=== PATIENT | female | born 1995 | race Caucasian/White ===

== ENCOUNTER 2019-09-29 23:30 | Emergency (ER) | payer SELFPAY ==
[~2019-09-29] VITALS: Ht 165.1 cm; Wt 118.0 kg
[~2019-09-29 23:30] MED LIST: IBUP-1027 PO
[2019-09-29 23:40] VITALS: BP 150/97
[2019-09-29] MEDS ORDERED: CEPH-264 PO (23:54)
--- NOTE | 2019-09-29 23:55 | PHYS DOC ---
Past Medical History Past Medical History: No Pertinent History Past Surgical History: No Surgical History Smoking Status: Current Some Day Smoker Alcohol Use: None Drug Use: None General Adult EDM: Chief Complaint: ABSCESS HPI: HPI: Patient is a 24 year old female presents for evaluation of swelling to her right cheek. Patient states she noticed swelling today. Swelling is located right cheek just inferior to the right eye. Associated symptoms include swelling and itch. On exam there is some mild swelling and erythema. There is a central open wound. Review of Systems: Review of Systems: Constitutional: Denies fever or chills. [] Eyes: Denies change in visual acuity. [] HENT: Denies nasal congestion or sore throat. [] Respiratory: Denies cough or shortness of breath. [] Cardiovascular: Denies chest pain or edema. [] GI: Denies abdominal pain, nausea, vomiting, bloody stools or diarrhea. [] : Denies dysuria. [] Musculoskeletal: Denies back pain or joint pain. [] Integument: Denies rash. [positive swelling positive cellulitis] Neurologic: Denies headache, focal weakness or sensory changes. [] Endocrine: Denies polyuria or polydipsia. [] Lymphatic: Denies swollen glands. [] Psychiatric: Denies depression or anxiety. [] Heart Score: Risk Factors: Risk Factors: DM, Current or recent (<one month) smoker, HTN, HLP, family history of CAD, obesity. Risk Scores: Score 0 - 3: 2.5% MACE over next 6 weeks - Discharge Home Score 4 - 6: 20.3% MACE over next 6 weeks - Admit for Clinical Observation Score 7 - 10: 72.7% MACE over next 6 weeks - Early Invasive Strategies Allergies: Allergies: Allergies Coded Allergies Type Severity Reaction Last Updated Verified No Known Drug Allergies 09/11/14 No Physical Exam: PE: Constitutional: Well developed, well nourished, no acute distress, non-toxic appearance. [] HENT: Normocephalic, atraumatic, bilateral external ears normal, oropharynx moist, no oral exudates, nose normal. [] Eyes: PERRLA, EOMI, conjunctiva normal, no discharge. [] Neck: Normal range of motion, no tenderness, supple, no stridor. [] Cardiovascular:Heart rate regular rhythm, no murmur [] Lungs & Thorax: Bilateral breath sounds clear to auscultation [] Abdomen: Bowel sounds normal, soft, no tenderness, no masses, no pulsatile masses. [] Skin: Warm, dry, no erythema, no rash. [swelling right cheek, small wound central, no scab no active bleeding, warm to touch, nonfluctant] Back: No tenderness, no CVA tenderness. [] Extremities: No tenderness, no cyanosis, no clubbing, ROM intact, no edema. [] Neurologic: Alert and oriented X 3, normal motor function, normal sensory function, no focal deficits noted. [] Psychologic: Affect normal, judgement normal, mood normal. [] Current Patient Data: Vital Signs: Vital Signs Date Time Temp Pulse Resp B/P (MAP) Pulse Ox O2 Delivery O2 Flow Rate FiO2 09/29/19 23:40 98.3 90 20 150/97 (114) 96 Room Air 98.3 EKG: EKG: [] Radiology/Procedures: Radiology/Procedures: [] Course & Med Decision Making: Course & Med Decision Making Pertinent Labs and Imaging studies reviewed. (See chart for details) [] Dragon Disclaimer: Dragon Disclaimer: This electronic medical record was generated, in whole or in part, using a voice recognition dictation system. Departure Departure Impression: Primary Impression: Cellulitis Disposition: 01 HOME, SELF-CARE Condition: STABLE Referrals: NO PCP (PCP) Patient Instructions: Cellulitis Scripts Cephalexin (KEFLEX) 500 Mg Capsule 500 MG PO QID, #40 CAP Prov: DELL MARTINI DO 09/29/19 Justicifation of Admission Dx: Justifications for Admission: Justification of Admission Dx: N/A DELL MARTINI DO Sep 29, 2019 23:55
== END 2019-09-30 00:01 | disposition home or self-care (01) ==
LOC: ER 23:30
DX: L03.211 Cellulitis of face (principal); L53.9 Erythematous condition, unspecified; R60.0 Localized edema; F17.200 Nicotine dependence, unspecified, uncomplicated
CPT/HCPCS: 99283

== ENCOUNTER 2020-01-29 11:01 | Emergency (ER) | payer MEDICAID, OTHER ==
[~2020-01-29] VITALS: Ht 170.2 cm; Wt 122.7 kg
[~2020-01-29 11:01] MED LIST changes: +CEPH-264 PO
[2020-01-29 11:31] LABS: BILIRUBIN,URINE NEGATIVE (NEG); CLARITY,URINE CLEAR; COLOR,URINE YELLOW; NITRITE,URINE NEGATIVE (NEG); PROTEIN,URINE NEGATIVE (NEG-TRACE)
[2020-01-29 11:35] LABS: BACTERIA,URINE MODERATE /HPF (0-FEW); RBC,URINE OCC /HPF (0-2)
--- NOTE | 2020-01-29 11:37 | ED.ADGEN ---
Past Medical History Past Medical History: No Pertinent History Past Surgical History: No Surgical History Smoking Status: Current Some Day Smoker Alcohol Use: None Drug Use: None General Adult EDM: Chief Complaint: VAGINAL PROBLEM HPI: HPI: Patient is a 24 year old female who presents the emergency department with complaints of pelvic pain after a slip and fall yesterday. Patient states that she slipped on a wet floor in her dining room and landed on her right side, she denies any loss of consciousness. Patient reports concern because she is currently , her last menstrual cycle was on November [id number] and her estimated due date is August 102020. Patient is 1, para 0. She denies any vaginal bleeding or irregular vaginal discharge. The patient denies any back pain, extremity pain, fever, cough, shortness of breath, hematuria, abdominal pain, nausea, vomiting, or diarrhea. She states she has had some burning with urination since yesterday. She currently rates pain a 5 out of 10 on the pain scale, she denies any alleviating factors the pain is worse with urination. Review of Systems: Review of Systems: Complete ROS is negative unless otherwise noted in HPI. Allergies: Allergies: Allergies Coded Allergies Type Severity Reaction Last Updated Verified No Known Drug Allergies 09/11/14 No Physical Exam: PE: See Above Constitutional: Well developed, well nourished, no acute distress, non-toxic appearance, obese. HENT: Normocephalic, atraumatic, bilateral external ears normal, nose normal. Eyes: PERRLA, EOMI, conjunctiva normal, no discharge. Neck: Normal range of motion, no stridor. Cardiovascular: Heart rate regular rhythm Lungs & Thorax: Respirations even and unlabored, no retractions, no respiratory distress Pelvic Exam: Musical Instrument Maker present Alesia HALL Abdomen: Nontender, soft External Genitalia: Normal Skin Speculum: Deferred Bimanual: Deferred Skin: Warm, dry, no erythema, no rash, no bruising. Back: No tenderness Extremities: No cyanosis, ROM intact, no edema. Neurologic: Alert and oriented X 3, no focal deficits noted. Psychologic: Affect normal, judgement normal, mood normal. Current Patient Data: Labs: Laboratory Tests Test 01/29/20 11:14 01/29/20 11:21 Urine Collection Type Unknown Urine Color Yellow Urine Clarity Clear Urine pH 8.0 (<5.0-8.0) Urine Specific Hemphill 1.015 (1.000-1.030) Urine Protein Negative mg/dL (NEG-TRACE) Urine Glucose (UA) Negative mg/dL (NEG) Urine Ketones (Stick) Negative mg/dL (NEG) Urine Blood Negative (NEG) Urine Nitrite Negative (NEG) Urine Bilirubin Negative (NEG) Urine Urobilinogen Dipstick 1.0 mg/dL (0.2 mg/dL) Urine Leukocyte Esterase Small (NEG) Urine RBC Occ /HPF (0-2) Urine WBC 5-10 /HPF (0-4) Urine Squamous Epithelial Cells Many /LPF Urine Bacteria Moderate /HPF (0-FEW) Urine Mucus Mod /LPF POC Urine HCG, Qualitative Hcg positive (Negative) Vital Signs: Vital Signs Date Time Temp Pulse Resp B/P (MAP) Pulse Ox O2 Delivery O2 Flow Rate FiO2 01/29/20 11:06 98.4 112 16 164/70 (101) 97 Room Air 98.4 EKG: EKG: [] Heart Score: Risk Factors: Risk Factors: DM, Current or recent (<one month) smoker, HTN, HLP, family history of CAD, obesity. Risk Scores: Score 0 - 3: 2.5% MACE over next 6 weeks - Discharge Home Score 4 - 6: 20.3% MACE over next 6 weeks - Admit for Clinical Observation Score 7 - 10: 72.7% MACE over next 6 weeks - Early Invasive Strategies Radiology/Procedures: Radiology/Procedures: PROCEDURE: OB LIMITED Limited OB ultrasound. INDICATION: Pelvic pain after a fall. 12 weeks , LMP 11/04/2019. TECHNIQUE: Grayscale and M-mode ultrasound of the gravid uterus was performed. FINDINGS: Based on LMP of 11/04/2019, gestational age by dates is 12 weeks and 1 day with an estimated delivery date of August 11, 2020. Single live intrauterine gestation in variable lie is present with a heart rate of 155 bpm. Placenta is posterior and does not appear low-lying. No subchorionic hemorrhage is identified. The cervix appears closed but is not well visualized for accurate length assessment. Biparietal diameter of 3.2 cm corresponds with 16 weeks 0 days Head circumference 13.4 cm corresponds with 16 weeks 6 days Abdominal circumference of 9.9 cm corresponds with 16 weeks 0 days Femoral length of 2.0 cm corresponds with 16 weeks 0 days. Average ultrasound age is therefore is 16 weeks 2 days, with an estimated delivery date by ultrasound of July 13, 2020. Estimated weight is 144 +/- 21 g Head to abdominal circumference ratio measures 1.35. No adnexal mass or pelvic free fluid is identified. IMPRESSION: Single live intrauterine gestation with a sonographic gestational age of 16 weeks 2 days and estimated delivery date of July 13, 2020. Correlate with prior dating. [] Course & Med Decision Making: Course & Med Decision Making I have reviewed the PA/COMPUTER SALESPERSON RETAIL's note and Plan of Care. I was available for consultation as needed during the patient's visit in the emergency department. I agree with the clinical impression, plans and disposition.Pertinent Labs and Imaging studies reviewed. (See chart for details) [] Dragon Disclaimer: Dragon Disclaimer: This electronic medical record was generated, in whole or in part, using a voice recognition dictation system. Departure Departure Impression: Primary Impression: Pelvic pain affecting in second trimester, antepartum Additional Impression: UTI (urinary tract infection) in in second trimester Disposition: 01 DC HOME SELF CARE/HOMELESS Condition: STABLE Referrals: DAMON ROE MD Patient Instructions: Abdominal Pain During , [id number], - Urinary Tract Infection Additional Instructions: Fill prescription(s) and use as directed. Avoid bladder irritants such as caffeine, carbonation, and spicy foods. Increase clear fluids. Pelvic rest until you follow-up with an FAMILY DEVELOPMENT EXTENSION SPECIALIST, I have provided Dr. Lopes's information for follow up, call for an appointment. Your ultrasound revealed that you are 16 weeks, 2 days and your due date is July 132020.. Scripts Cephalexin (CEPHALEXIN) 500 Mg Capsule 1 CAP PO BID for 7 Days, #14 CAP 0 Refills Prov: COURTNEY FAUST APRN 01/29/20 Problem Qualifiers COURTNEY FAUST APRN Jan 29, 2020 11:37 MATTEO CASTILLO MD Jan 29, 2020 13:00
--- NOTE | 2020-01-29 12:26 | RAD ---
Limited OB ultrasound. INDICATION: Pelvic pain after a fall. 12 weeks , LMP 11/04/2019. TECHNIQUE: Grayscale and M-mode ultrasound of the gravid uterus was performed. FINDINGS: Based on LMP of 11/04/2019, gestational age by dates is 12 weeks and 1 day with an estimated delivery date of August 11, 2020. Single live intrauterine gestation in variable lie is present with a heart rate of 155 bpm. Placenta is posterior and does not appear low-lying. No subchorionic hemorrhage is identified. The cervix appears closed but is not well visualized for accurate length assessment. Biparietal diameter of 3.2 cm corresponds with 16 weeks 0 days Head circumference 13.4 cm corresponds with 16 weeks 6 days Abdominal circumference of 9.9 cm corresponds with 16 weeks 0 days Femoral length of 2.0 cm corresponds with 16 weeks 0 days. Average ultrasound age is therefore is 16 weeks 2 days, with an estimated delivery date by ultrasound of July 13, 2020. Estimated weight is 144 +/- 21 g Head to abdominal circumference ratio measures 1.35. No adnexal mass or pelvic free fluid is identified. IMPRESSION: Single live intrauterine gestation with a sonographic gestational age of 16 weeks 2 days and estimated delivery date of July 13, 2020. Correlate with prior dating. Electronically signed by: Ksenia Triplett MD (01/29/2020 12:23 PM) [id number]
[2020-01-29 12:42] VITALS: BP 131/73
[2020-01-29] MEDS ORDERED: CEPH500C PO (12:57)
== END 2020-01-29 13:09 | disposition home or self-care (01) ==
LOC: ER 11:01
DX: O23.42 Unspecified infection of urinary tract in pregnancy, second trimester (principal); R10.2 Pelvic and perineal pain; Z87.891 Personal history of nicotine dependence; Z3A.16 16 weeks gestation of pregnancy
CPT/HCPCS: 76815; 81001; 81025; 87086; 99284

== ENCOUNTER 2020-01-31 10:33 | Emergency (ER) | payer MEDICAID, OTHER ==
[~2020-01-31] VITALS: Ht 167.6 cm; Wt 109.0 kg
[~2020-01-31 10:33] MED LIST changes: +CEPH500C PO
--- NOTE | 2020-01-31 11:32 | PHYS DOC ---
Past Medical History Past Medical History: No Pertinent History Past Surgical History: No Surgical History Smoking Status: Current Every Day Smoker Alcohol Use: None Drug Use: None General Adult EDM: Chief Complaint: VAGINAL PROBLEM HPI: HPI: Patient is a 24 year old female who presents with complaints of vaginal bleeding she noticed today. Patient states that she was seen here 2 days ago from a slip and fall at work for which she landed on her right hip stating that she did not fall that hard however was worried about her and was seen here in the ER. Patient states today while she was at work at approximately 10 AM felt a quintanilla of fluids come from her vaginal area, she is stating she went directly to the bathroom and noticed some light pink discharge on the toilet paper, patient denied any noticing tissue or blood clots or bright red blood expelling from her vagina. Patient states she did not feel any cramping or abdominal pain however states she has some vaginal pressure that she has had for several weeks. Patient states that she was diagnosed with a urinary tract infection 2 days ago here at the [place] [facility] but was unable to fill her prescription for Keflex, however states that she is able to fill her prescription today and plans to do so if she is not admitted to the hospital. Patient denies any aches or pains from her fall 2 days ago. Patient denies any new or recent fever or chills, any visual changes, any nasal congestion cough or shortness of breath today. Patient denies any chest pain or swelling of her extremities. Patient denies any nausea vomiting diarrhea or constipation. Patient states she still has some increased pressure with urination and associates this with her diagnosis of a UTI. Patient denies any back pain or pain in her joints. Patient denies any skin rashes headaches or sensory changes. Patient denies any swelling of her glands. Patient denies any depressions or anxieties, homicidal or suicidal ideation. Review of Systems: Review of Systems: Constitutional: Denies fever or chills. Eyes: Denies change in visual acuity. HENT: Denies nasal congestion or sore throat. Respiratory: Denies cough or shortness of breath. Cardiovascular: Denies chest pain or edema. GI: Denies abdominal pain, nausea, vomiting, constipation or diarrhea. : Reports difficulty urination that she associates with her recently diagnosed UTI, reports seeing light pink discharge on her toilet paper after wiping after urination. Musculoskeletal: Denies back pain or joint pain. Integument: Denies rash. [] Neurologic: Denies headache, focal weakness or sensory changes. Lymphatic: Denies swollen glands. Psychiatric: Denies depression or anxiety. Heart Score: Risk Factors: Risk Factors: DM, Current or recent (<one month) smoker, HTN, HLP, family history of CAD, obesity. Risk Scores: Score 0 - 3: 2.5% MACE over next 6 weeks - Discharge Home Score 4 - 6: 20.3% MACE over next 6 weeks - Admit for Clinical Observation Score 7 - 10: 72.7% MACE over next 6 weeks - Early Invasive Strategies Current Medications: Patient states he currently takes a vitamin and will start taking her prescribed oral antibiotic today when she fills her prescription at the pharmacy. Allergies: Allergies: Allergies Coded Allergies Type Severity Reaction Last Updated Verified No Known Drug Allergies 09/11/14 No Physical Exam: PE: Constitutional: Well developed, well nourished, no acute distress, non-toxic appearance. HENT: Normocephalic, atraumatic, bilateral external ears normal, oropharynx moist, no oral exudates, nose normal. Eyes: PERRLA, EOMI, conjunctiva normal, no discharge. Neck: Normal range of motion, no tenderness, supple, no stridor. Cardiovascular:Heart rate regular rhythm, no murmur Lungs & Thorax: Bilateral breath sounds clear to auscultation Abdomen: Bowel sounds normal, soft, no tenderness, no masses, no pulsatile masses. Pelvis/Vaginal: No abnormalities per pelvic exam, external structures within normal limits without lesions, infectious process, or discharge noted. Speculum exam revealed no blood in the vaginal vault, scant amount of thin white mucoid discharge noted along vaginal smith, the os was closed, no blood from or around os. GC/Chlamydia cultures along with wet prep were obtained. No pain elicited per bimanual exam. Skin: Warm, dry, no erythema, no rash. Back: No tenderness, no CVA tenderness. Extremities: No tenderness, no cyanosis, no clubbing, ROM intact, no edema. Neurologic: Alert and oriented X 3, normal motor function, normal sensory function, no focal deficits noted. Psychologic: Affect normal, judgement normal, mood normal. Current Patient Data: Labs: Laboratory Tests Test 01/31/20 11:30 White Blood Count 9.7 x10^3/uL Red Blood Count 3.98 x10^6/uL Hemoglobin 11.8 g/dL Hematocrit 33.8 % Mean Corpuscular Volume 85 fL Mean Corpuscular Hemoglobin 30 pg Mean Corpuscular Hemoglobin Concent 35 g/dL Red Cell Distribution Width 13.5 % Platelet Count 297 x10^3/uL Neutrophils (%) (Auto) 79 % Lymphocytes (%) (Auto) 15 % Monocytes (%) (Auto) 4 % Eosinophils (%) (Auto) 1 % Basophils (%) (Auto) 0 % Neutrophils # (Auto) 7.7 x10^3/uL Lymphocytes # (Auto) 1.5 x10^3/uL Monocytes # (Auto) 0.4 x10^3/uL Eosinophils # (Auto) 0.1 x10^3/uL Basophils # (Auto) 0.0 x10^3/uL Prothrombin Time 12.1 SEC Prothromb Time International Ratio 0.9 Activated Partial Thromboplast Time 27 SEC Urine Collection Type Unknown Urine Color Yamini Urine Clarity Turbid Urine pH 5.5 Urine Specific Walden >=1.030 Urine Protein 100 mg/dL Urine Glucose (UA) Negative mg/dL Urine Ketones (Stick) Trace mg/dL Urine Blood Large Urine Nitrite Negative Urine Bilirubin Small Urine Urobilinogen Dipstick 1.0 mg/dL Urine Leukocyte Esterase Large Urine RBC >40 /HPF Urine WBC 20-40 /HPF Urine Squamous Epithelial Cells Many /LPF Urine Bacteria Many /HPF Urine Mucus Mod /LPF Maternal Serum HCG Beta Subunit 51723 mIU/mL Sodium Level 139 mmol/L Potassium Level 3.5 mmol/L Chloride Level 104 mmol/L Carbon Dioxide Level 22 mmol/L Anion Gap 13 Blood Urea Nitrogen 6 mg/dL Creatinine 0.4 mg/dL Estimated GFR (Cockcroft-Gault) 194.5 BUN/Creatinine Ratio 15 Glucose Level 94 mg/dL Calcium Level 9.6 mg/dL Total Bilirubin 0.3 mg/dL Aspartate Amino Transf (AST/SGOT) 23 U/L Alanine Aminotransferase (ALT/SGPT) 39 U/L Alkaline Phosphatase 109 U/L Total Protein 6.9 g/dL Albumin 3.0 g/dL Albumin/Globulin Ratio 0.8 Current Medications Medications (Trade) Dose Ordered Sig/Almaz Route PRN Reason Start Time Stop Time Status Last Admin Dose Admin Cephalexin HCl (Keflex) 500 mg 1X STAT PO 01/31/20 14:47 01/31/20 14:54 DC 01/31/20 15:11 Vital Signs: Vital Signs Date Time Temp Pulse Resp B/P (MAP) Pulse Ox O2 Delivery O2 Flow Rate FiO2 01/31/20 10:52 98.2 102 18 133/83 (100) 99 Room Air 98.2 EKG: EKG: [] Radiology/Procedures: Radiology/Procedures: PATIENT: FRANKIE NAVA ACCOUNT: [id number] : 1995 LOCATION: ER AGE: 24 SEX: F EXAM STATUS: REG ER ORD. PHYSICIAN: RONALDO KEARNEY APRN REASON: ABDOMINAL TRAUMA FROM FALL 2 DAYS AGO, VAGINAL BLEEDING PROCEDURE: OB LIMITED OB LIMITED Clinical Indication: ABDOMINAL TRAUMA FROM FALL 2 DAYS AGO, VAGINAL BLEEDING. 16 weeks . Comparison: Ultrasound 01/29/2020 Technique: Multiple grayscale images, color Doppler, and M-mode images of the uterus are obtained. Findings: There is a single intrauterine gestation in breech presentation. The placenta is posterior in location without evidence of placenta previa. The amount of amniotic fluid appears appropriate. Amniotic fluid index is 10.2 cm. Cervical length is 4.4 cm. Biometrical data: BPD = 3.41 cm for 16 weeks 4 days. HC = 13.03 cm for 16 weeks 5 days. AC = 10.76 cm for 16 weeks 5 days. FL = 2.21 cm for 16 weeks 4 days. CI ratio = 77.6. HC/AC ratio = 1.21. FL/HC ratio = 17.0. FL/AC ratio = 20.5. Overall, the estimated sonographic gestational age is 16 weeks 5 days for an estimated date of delivery of 07/12/2020. Estimated weight is 164 grams. The estimated heart rate is 145 beats per minute. Impression: Single live intrauterine gestation with estimated sonographic gestational age of 16 weeks 5 days. Normal length cervix. No areas of hemorrhage seen. Electronically signed by: Matteo Rizzo MD (01/31/2020 2:01 PM) [id number] DICTATED and SIGNED BY: MATTEO RIZZO MD DATE: 01/31/20 1401 Course & Med Decision Making: Course & Med Decision Making Pertinent Labs and Imaging studies reviewed. (See chart for details) 24-year-old female patient 1 para 0, approximately 16 weeks return to the emergency department today. Was seen 2 days ago for a slip and fall at work. Patient states today at approximately 10:00 while she was at work she felt a gush of fluid vaginally and went to the bathroom and wiped and noticed some pink tinge color on the toilet paper. Patient became concerned because of her fall 2 days ago and came directly to the emergency department. Patient denied any abdominal or pelvic cramping, however related to recent fall a repeat sonogram was ordered to rule out hematoma or other related abnormalities. Labs were obtained along with a repeat urinalysis. Sonogram was unremarkable noting a 16-week 5-day intrauterine . Patient's pelvic exam was unremarkable and no blood was noted. Patient denied any STI concerns however STI cultures were obtained, GC/chlamydia pending, wet prep was negative. Patient's urine concerning for cystitis. Patient states that she was given a prescription for Keflex 2 days ago for cystitis but was unable to fill the prescription, however patient states that she will fill it today and has the resources to do so. Discussed findings with patient, need to fill and continue taking her Keflex medication. Patient was given a 500 mg Keflex today in the emergency department, patient states that she will fill and take prescribed medications as directed. Patient states that she will make an appointment to see OB specialist CHRISTIAN ELLIS soon. Patient gave verbal understanding of discharge home instructions prescription instructions return to ER concerns. Patient had no further questions or co ncerns. Patient discharged home without incident. Marlo Disclaimer: Marlo Disclaimer: This electronic medical record was generated, in whole or in part, using a voice recognition dictation system. Departure Departure Impression: Primary Impression: UTI (urinary tract infection) in in second trimester Disposition: 01 DC HOME SELF CARE/HOMELESS Condition: GOOD Referrals: NO PCP (PCP) Patient Instructions: - Urinary Tract Infection Additional Instructions: Fill your prescribed medications and take as directed, follow-up with an OB doctor soon, continue taking your vitamin, return to the emergency department for worsening symptoms or other concerns. RONALDO KEARNEY APRN Jan 31, 2020 11:32
[2020-01-31 11:40] LABS: BASO % 0 % (0-3); EOS # 0.1 x10^3/uL (0.0-0.7); EOS % 1 % (0-3); HEMATOCRIT 33.8 % (36.0-47.0); HEMOGLOBIN 11.8 g/dL (12.0-15.5); LYMPH # 1.5 x10^3/uL (1.0-4.8); LYMPH % 15 % (24-48); MEAN CORPUSCULAR HEMOGLOBIN 30 pg (25-35); MEAN CORPUSCULAR HGB CONC 35 g/dL (31-37); MEAN CORPUSCULAR VOLUME 85 fL (79-100); MONO # 0.4 x10^3/uL (0.0-1.1); MONO % 4 % (0-9); NEUT # 7.7 x10^3/uL (1.8-7.7); NEUT % 79 % (31-73); PLATELET COUNT 297 x10^3/uL (140-400); RED BLOOD COUNT 3.98 x10^6/uL (3.50-5.40); RED CELL DISTRIBUTION WIDTH 13.5 % (11.5-14.5); WHITE BLOOD COUNT 9.7 x10^3/uL (4.0-11.0)
[2020-01-31 11:42] LABS: BILIRUBIN,URINE SMALL (NEG); CLARITY,URINE TURBID; COLOR,URINE AMBER; NITRITE,URINE NEGATIVE (NEG); PH,URINE 5.5 (<5.0-8.0); PROTEIN,URINE 100 mg/dL (NEG-TRACE)
[2020-01-31 11:50] LABS: CALCIUM 9.6 mg/dL (8.5-10.1); CREATININE 0.4 mg/dL (0.6-1.0); GFR 194.5; POTASSIUM 3.5 mmol/L (3.5-5.1); PROTHROMBIN TIME PATIENT 12.1 SEC (11.7-14.0)
[2020-01-31 11:53] LABS: BACTERIA,URINE MANY /HPF (0-FEW); RBC,URINE >40 /HPF (0-2); WBC,URINE 20-40 /HPF (0-4)
[2020-01-31 11:56] LABS: ALBUMIN/GLOBULIN RATIO 0.8 (1.0-1.7); TOTAL BILIRUBIN 0.3 mg/dL (0.2-1.0); TOTAL PROTEIN 6.9 g/dL (6.4-8.2)
--- NOTE | 2020-01-31 14:04 | RAD ---
OB LIMITED Clinical Indication: ABDOMINAL TRAUMA FROM FALL 2 DAYS AGO, VAGINAL BLEEDING. 16 weeks . Comparison: Ultrasound 01/29/2020 Technique: Multiple grayscale images, color Doppler, and M-mode images of the uterus are obtained. Findings: There is a single intrauterine gestation in breech presentation. The placenta is posterior in location without evidence of placenta previa. The amount of amniotic fluid appears appropriate. Amniotic fluid index is 10.2 cm. Cervical length is 4.4 cm. Biometrical data: BPD = 3.41 cm for 16 weeks 4 days. HC = 13.03 cm for 16 weeks 5 days. AC = 10.76 cm for 16 weeks 5 days. FL = 2.21 cm for 16 weeks 4 days. CI ratio = 77.6. HC/AC ratio = 1.21. FL/HC ratio = 17.0. FL/AC ratio = 20.5. Overall, the estimated sonographic gestational age is 16 weeks 5 days for an estimated date of delivery of 07/12/2020. Estimated weight is 164 grams. The estimated heart rate is 145 beats per minute. Impression: Single live intrauterine gestation with estimated sonographic gestational age of 16 weeks 5 days. Normal length cervix. No areas of hemorrhage seen. Electronically signed by: Hossein Rizzo MD (01/31/2020 2:01 PM) [id number]
[2020-01-31] MEDS ORDERED: CEPHALEXIN 250 MG CAPSULE. PO STA (14:47)
[2020-01-31 15:09] VITALS: BP 113/56
[2020-02-02 18:09] LABS: GC PROBE Negative (Negative)
== END 2020-01-31 15:14 | disposition home or self-care (01) ==
LOC: ER 10:33
DX: O23.42 Unspecified infection of urinary tract in pregnancy, second trimester (principal); O99.332 Smoking (tobacco) complicating pregnancy, second trimester; Z3A.16 16 weeks gestation of pregnancy
CPT/HCPCS: 36415; 76815; 80053; 81001; 84702; 85025; 85610; 85730; 87086; 87491; 87591; 99284

== ENCOUNTER → 2020-02-20 | Outpatient (CLI) | payer MEDICAID ==
[2020-01-31 15:09] VITALS: BP 113/56
--- NOTE | 2020-02-20 12:33 | RAD ---
EXAM: Ultrasound OB Greater than 14 weeks INDICATION: Reason: SIZE OF FETUS INCONSISTENT WITH DATES IN SECOND TRIMESTER. / Spl. Instructions: / History: TECHNIQUE: Real-time obstetrical ultrasound was performed with permanent freeze-frame documentation. COMPARISON: 01/31/2020 OB ultrasound FINDINGS: POSITION: Transverse HEART RATE: 143 bpm PREMA: 10.6 cm PLACENTA: Posterior CERVICAL LENGTH: 5.2 cm MATERNAL UTERUS: Unremarkable. MATERNAL ADNEXA: Unremarkable. AGE/DATES: Gestational Age by LMP: 19 weeks 4 days Gestation Age by US: 19 weeks 3 days EDC by LMP: July 12, 2020 EDC by US: July 13, 2020 WEIGHT: 298 grams +/- 44 grams PERCENTILE WEIGHT: Not estimated. BIOMETRIC PARAMETERS: BPD: 4.4 cm corresponding with 19 weeks 2 days HC: 16.5 cm corresponding with 19 weeks 2 days AC: 14.3 cm corresponding with 19 weeks 4 days FL: 3.1 cm corresponding with 19 weeks 4 days ANATOMY: CARDIAC: Normal four chamber heart. Normal RVOT and LVOT. UMBILICAL CORD: Three-vessel is difficult to visualize. Normal cord insertion. BRAIN: Unremarkable. NOSE/LIPS: Unremarkable. SPINE: Unremarkable. EXTREMITIES: Unremarkable. STOMACH: Unremarkable. KIDNEYS: Unremarkable. BLADDER: Unremarkable. IMPRESSION: Unremarkable OB ultrasound demonstrating a single viable fetus in transverse position. Estimated gestational age of 19 weeks 3 days and EDC of July 13, 2020, which is one day younger than estimated gestational age by dates. profile three-vessel cord not well seen this exam. Electronically signed by: Ksenia Triplett MD (02/20/2020 12:30 PM) [id number]
== END ==
LOC: US 08:34
PROVIDERS: ATTEND Obstetrics & Gynecology
DX: O26.842 Uterine size-date discrepancy, second trimester (principal); Z3A.19 19 weeks gestation of pregnancy
CPT/HCPCS: 76805

== ENCOUNTER 2020-04-14 10:10 | Emergency (ER) | payer MEDICAID ==
[~2020-04-14] VITALS: Ht 175.3 cm; Wt 113.6 kg
[2020-04-14 10:25] VITALS: BP 153/74
[2020-04-14] MEDS ORDERED: CEPH500T PO (10:43)
--- NOTE | 2020-04-14 10:43 | PHYS DOC ---
Past Medical History Past Medical History: No Pertinent History Past Surgical History: No Surgical History Smoking Status: Current Every Day Smoker Alcohol Use: None Drug Use: None General Adult EDM: Chief Complaint: ABSCESS HPI: HPI: Patient is a 24 year old female 1 para 0 currently 27 weeks presenting to the ED today complaining of an abscess on the right labia that she noticed 3 days ago. Patient denies any fever or drainage from the area. She last saw her [facility] last week. Has another appointment on May 05. Review of Systems: Review of Systems: Constitutional: Denies fever or chills. [] : Denies dysuria. [] Musculoskeletal: Denies back pain or joint pain. [] Integument: Reports abscess to the right labia Neurologic: Denies headache, focal weakness or sensory changes. [] Psychiatric: Denies depression or anxiety. [] Heart Score: Risk Factors: Risk Factors: DM, Current or recent (<one month) smoker, HTN, HLP, family history of CAD, obesity. Risk Scores: Score 0 - 3: 2.5% MACE over next 6 weeks - Discharge Home Score 4 - 6: 20.3% MACE over next 6 weeks - Admit for Clinical Observation Score 7 - 10: 72.7% MACE over next 6 weeks - Early Invasive Strategies Allergies: Allergies: Allergies Coded Allergies Type Severity Reaction Last Updated Verified No Known Drug Allergies 09/11/14 No Physical Exam: PE: Constitutional: Well developed, well nourished, no acute distress, non-toxic appearance. [] Abdomen: Gravid abdomen. Bowel sounds normal, soft, no tenderness, no masses, no pulsatile masses. [] Skin: Proximal end of the right labia majora with an indurated region approximately 1 x 1 cm. The area is firm, tender to touch, no fluctuance. Slight erythema. Back: No tenderness, no CVA tenderness. [] Extremities: No tenderness, no cyanosis, no clubbing, ROM intact, no edema. [] Neurologic: Alert and oriented X 3, normal motor function, normal sensory function, no focal deficits noted. [] Psychologic: Affect normal, judgement normal, mood normal. [] EKG: EKG: [] Radiology/Procedures: Radiology/Procedures: [] Course & Med Decision Making: Course & Med Decision Making Pertinent Labs and Imaging studies reviewed. (See chart for details) This is a 24-year-old female patient currently 27 weeks presenting to the ED today with an abscess to the right proximal labia. Abscess is firm with no fluctuance, there is nothing to drain. Started on cephalexin and warm compresses recommended to the area. Tetanus is up-to-date. Follow-up with [facility] in 1 to 2 weeks. Provided return precautions Dragon Disclaimer: Dragon Disclaimer: This electronic medical record was generated, in whole or in part, using a voice recognition dictation system. Departure Departure Impression: Primary Impression: Labial abscess Disposition: DC HOME SELF CARE/HOMELESS Condition: STABLE Referrals: NO PCP (PCP) CHRISTIAN PEREZ Jr, MD follow up in one week Patient Instructions: Abscess Additional Instructions: You have right labial abscess. Apply warm compresses to this region 3 times a day. Take the prescribed antibiotics until completed. Follow-up with your [facility] in 1 to 2 weeks. Come back to the ED at any point symptoms Scripts Cephalexin (CEPHALEXIN) 500 Mg Tablet 1 TAB PO BID, #14 TAB Prov: GUNNAR MERCADO APRN 04/14/20 GUNNAR MERCADO APRN Apr 14, 2020 10:43
== END 2020-04-14 11:22 | disposition home or self-care (01) ==
LOC: ER 10:10
DX: O23.592 Infection of other part of genital tract in pregnancy, second trimester (principal); F17.200 Nicotine dependence, unspecified, uncomplicated; Z3A.27 27 weeks gestation of pregnancy
CPT/HCPCS: 99283

== ENCOUNTER 2020-06-02 13:42 | Observation (INO) | payer MEDICAID ==
[~2020-06-02 13:42] MED LIST changes: +CEPH500T PO
[2020-06-02] MEDS ORDERED: IV RINGERS,LACTATED 1000ML 1,000 ML IV SCH (14:00)
[2020-06-02] MEDS ORDERED: ACETAMINOPHEN 325 MG TABLET. PO PRN (14:00)
[2020-06-02 14:17] LABS: BILIRUBIN,URINE NEGATIVE (NEG); CLARITY,URINE CLEAR; COLOR,URINE YELLOW; NITRITE,URINE NEGATIVE (NEG); PROTEIN,URINE NEGATIVE (NEG-TRACE); UROBILINOGEN,URINE 0.2 mg/dL (0.2 mg/dL)
[2020-06-02 14:19] LABS: CREATININE,RANDOM URINE 49.9 mg/dL (Not Establ.)
[2020-06-02 14:27] LABS: BACTERIA,URINE 0 /HPF (0-FEW); RBC,URINE 0 /HPF (0-2); WBC,URINE RARE /HPF (0-4)
== END 2020-06-02 15:15 | disposition home or self-care (01) ==
LOC: 3 SO LND 13:42
PROVIDERS: ADMIT Obstetrics & Gynecology; ATTEND Obstetrics & Gynecology
DX: O13.3 Gestational [pregnancy-induced] hypertension without significant proteinuria, third trimester (principal); O14.03 Mild to moderate pre-eclampsia, third trimester; Z3A.34 34 weeks gestation of pregnancy
CPT/HCPCS: 59025; 81001; 82570; 84156; G0378; G0379

== ENCOUNTER → 2020-06-04 | Outpatient (CLI) | payer MEDICAID ==
--- NOTE | 2020-06-05 01:21 | RAD ---
EXAM: OBSTETRIC ULTRASOUND. HISTORY: Size/date discrepancy. COMPARISON: None. FINDINGS: Sonographic evaluation of the uterus, fetus and maternal pelvis was performed. There is a single fetus in vertex presentation. heart rate is 136 bpm. Estimated gestational ag e based on measurements is 34 weeks 2 days. Head circumference, biparietal diameter, abdominal circum ference and femur length are commensurate. Estimated weight is 2477 g, at 45th percentile. The placenta is posterior. There is no evidence of placenta previa. Amniotic fluid volume appears nor mal with amniotic fluid index 11 cm. The cervix is closed and measures 4.7 cm. The cord insertion is normal. The stomach is visualized. There is no hydrocephalus. Nose/lip morpholo gy appears normal. The maternal adnexa are obscured by positioning currently. IMPRESSION: 1. Single fetus in vertex presentation. heart rate 136 bpm. Estimated gestational age based on measurements 34 weeks 2 days. Estimated weight 2477 g. Electronically signed by: Shirley Walter MD (06/05/2020 1:19 AM) [facility]
== END ==
LOC: US 10:55
PROVIDERS: ATTEND Obstetrics & Gynecology
DX: O26.843 Uterine size-date discrepancy, third trimester (principal); Z3A.34 34 weeks gestation of pregnancy
CPT/HCPCS: 76815

== ENCOUNTER 2020-06-10 14:21 | Observation (INO) | payer MEDICAID ==
[2020-06-10] MEDS ORDERED: IV RINGERS,LACTATED 1000ML 1,000 ML IV SCH (15:15)
[2020-06-10 15:51] LABS: BILIRUBIN,URINE NEGATIVE (NEG); CLARITY,URINE CLEAR; COLOR,URINE YELLOW; NITRITE,URINE NEGATIVE (NEG); PROTEIN,URINE NEGATIVE (NEG-TRACE)
[2020-06-10 16:01] LABS: AMORPHOUS SEDIMENT,UR PRESENT /HPF; BACTERIA,URINE FEW /HPF (0-FEW); RBC,URINE OCC /HPF (0-2)
== END 2020-06-10 16:21 | disposition home or self-care (01) ==
LOC: 3 SO LND 14:21
PROVIDERS: ADMIT Obstetrics & Gynecology; ATTEND Obstetrics & Gynecology
DX: O26.893 Other specified pregnancy related conditions, third trimester (principal); R03.0 Elevated blood-pressure reading, without diagnosis of hypertension; Z3A.35 35 weeks gestation of pregnancy; Z79.899 Other long term (current) drug therapy
CPT/HCPCS: 59025; 81001; 87086; G0378; G0379

== ENCOUNTER 2020-06-17 15:17 | Observation (INO) | payer MEDICAID ==
[2020-06-17] MEDS ORDERED: IV RINGERS,LACTATED 1000ML 1,000 ML IV PRN (15:45)
[2020-06-17 15:51] LABS: BILIRUBIN,URINE NEGATIVE (NEG); CLARITY,URINE CLOUDY; COLOR,URINE YELLOW; NITRITE,URINE NEGATIVE (NEG); PROTEIN,URINE NEGATIVE (NEG-TRACE)
[2020-06-17 16:02] LABS: BACTERIA,URINE MANY /HPF (0-FEW); RBC,URINE 0 /HPF (0-2)
== END 2020-06-17 16:45 | disposition home or self-care (01) ==
LOC: 3 SO LND 15:17
PROVIDERS: ADMIT Obstetrics & Gynecology; ATTEND Obstetrics & Gynecology
DX: O26.893 Other specified pregnancy related conditions, third trimester (principal); R51.9 Headache, unspecified; Z3A.36 36 weeks gestation of pregnancy; Z79.899 Other long term (current) drug therapy
CPT/HCPCS: 59025; 81001; 87086; G0378; G0379